=== PATIENT | female | born 1975 | race Two or more races ===

== ENCOUNTER 2017-09-30 14:20 | Emergency (ER) | payer SELFPAY ==
[2017-09-30] MEDS ORDERED: Ondansetron 4 MG Tab.DIS PO ONE (15:28)
--- NOTE | 2017-09-30 15:34 | EDM.PDOC ---
ED HPI GENERAL MEDICAL PROBLEM - General Chief Complaint: Gastrointestinal Problem Stated Complaint: DIARRHEA Time Seen by Provider: 09/30/17 15:29 Source of Information: Reports: Patient History Limitations: Reports: No Limitations - History of Present Illness INITIAL COMMENTS - FREE TEXT/NARRATIVE: pt works at [employer] and was sent home from work last nite because vomiting and diarrhea. She is not feeling well enough to be at work tonight. Onset: Other (last nite. ) Duration: Hour(s):, Other (pt has been holding fluids sown. ) Location: Reports: Abdomen, Other (pt is not hAVING PAIN. ) Associated Symptoms: Reports: Other ( PT HAS HAD DIARRHEA. 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: - Infectious Disease History Infectious Disease History: Reports: Chicken Pox - Past Surgical History Female Surgical History: Reports: Tubal Ligation Social & Family History - Tobacco Use Smoking Status *Q: Current Some Day Smoker Years of Tobacco use: 20 Packs/Tins Daily: 1 Used Tobacco, but Quit: No - Caffeine Use Caffeine Use: Reports: Coffee, Energy Drinks - Recreational Drug Use Recreational Drug Use: No ED ROS GENERAL - Review of Systems Review Of Systems: See Below Constitutional: Reports: Chills HEENT: Reports: No Symptoms Respiratory: Reports: No Symptoms Cardiovascular: Reports: No Symptoms Endocrine: Reports: No Symptoms GI/Abdominal: Reports: Diarrhea, Decreased Appetite, Vomiting : Reports: No Symptoms ED EXAM, GI/ABD - Physical Exam Exam: See Below Text/Narrative:: PT GOT SICK AT WORK . SHE HAD VOMITING AND HAD SIG DIARRHEA. sHE DOES NOT FEEL WELL ENOUGH TO BE AT WORK TONIGHT. Exam Limited By: No Limitations General Appearance: Alert, No Apparent Distress Ears: Normal TMs Nose: Normal Inspection Throat/Mouth: Normal Inspection Head: Atraumatic Neck: Normal Inspection Respiratory/Chest: No Respiratory Distress Cardiovascular: Regular Rate, Rhythm GI/Abdominal Exam: Other (MULTIPLE SCARS ON HER ABDOMAN. sHE HAS NO TENDERNESS. ) (Female) Exam: Deferred Rectal (Female) Exam: Deferred Back Exam: Normal Inspection Extremities: Normal Inspection Course - Vital Signs Last Recorded V/S: Last Vital Signs Temp 36.6 C 09/30/17 15:17 Pulse 91 09/30/17 15:17 Resp 18 09/30/17 15:17 BP 141/84 H 09/30/17 15:17 Pulse Ox 96 09/30/17 15:17 - Orders/Labs/Meds Meds: Medications Discontinued Medications Generic Name Dose Route Start Last Admin Trade Name Nasir PRN Reason Stop Dose Admin Acetaminophen 650 mg 09/30/17 15:57 09/30/17 16:01 Tylenol PO 09/30/17 15:58 650 mg NOW ONE Administration Loperamide HCl 4 mg 09/30/17 15:36 09/30/17 15:56 Imodium PO 09/30/17 15:37 4 mg ONETIME ONE Administration Loperamide HCl Confirm 09/30/17 15:58 Imodium Administered 09/30/17 15:59 Dose 2 mg .ROUTE .STK-MED ONE Ondansetron HCl 4 mg 09/30/17 15:28 09/30/17 15:33 Zofran Odt PO 09/30/17 15:29 4 mg ONETIME ONE Administration - Re-Assessments/Exams Free Text/Narrative Re-Assessment/Exam: 09/30/17 15:35 PT FEELS LIKE SHE HAS BEEN ABLE TO BE HYDRATED WITH THE FLUIDS SHE IS TAKING IN. sHE IS HAVING SIG DIARRHEA 09/30/17 16:04 PT WAS GIVEN SUBLING ZOFORAN AND SHE WAS ABLE TO KEEP FLUIDS DOWN. Departure - Departure Time of Disposition: 16:05 Disposition: Home, Self-Care 01 Condition: Fair Clinical Impression: Flu syndrome - Discharge Information Referrals: PCP,None [Primary Care Provider] - Forms: ED Department Discharge Care Plan Goals: CLEAR LIQUID DIET, ZOFORAN SUBLING Q6H NEEDED FOR NAUSEA AND VOMITING, IMMODIUM 2 TABS AFTER EACH LOOSE STOOL. NO WORK TONIGHT.
[2017-09-30] MEDS ORDERED: Loperamide 2 MG Cap PO ONE (15:36)
[2017-09-30] MEDS ORDERED: Acetaminophen 325 MG Tab PO ONE (15:57)
[2017-09-30] MEDS ORDERED: Loperamide 2 MG Cap ONE (15:58)
== END 2017-09-30 16:23 | disposition home or self-care (01) ==
LOC: JP.ED 14:20
DX: J11.1 Influenza due to unidentified influenza virus with other respiratory manifestations (principal); F17.210 Nicotine dependence, cigarettes, uncomplicated
CPT/HCPCS: 99284; A9270; 99283

== ENCOUNTER 2018-03-22 11:53 | Emergency (ER) | payer SELFPAY ==
[2018-03-22] MEDS ORDERED: Ketorolac 30 MG/ML SDV IM ONE (13:09)
--- NOTE | 2018-03-22 13:12 | EDM.PDOC ---
ED HPI GENERAL MEDICAL PROBLEM - General Chief Complaint: Fever Stated Complaint: SOB/DOES NOT FEEL WELL Time Seen by Provider: 03/22/18 12:51 Source of Information: Reports: Patient, Family, RN Notes Reviewed History Limitations: Reports: Language Barrier - History of Present Illness INITIAL COMMENTS - FREE TEXT/NARRATIVE: 21-year-old female presents to the emergency department day with complaints of shortness of breath and not feeling well, she is a [place] speaking so a language barrier does exist. 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 Female Surgical History: Reports: Tubal Ligation Social & Family History - Tobacco Use Smoking Status *Q: Light Tobacco Smoker Years of Tobacco use: 26 Packs/Tins Daily: 0.5 - Caffeine Use Caffeine Use: Reports: Coffee, Energy Drinks - Recreational Drug Use Recreational Drug Use: No ED ROS GENERAL - Review of Systems Review Of Systems: See Below Constitutional: Denies: Fever, Chills HEENT: Reports: No Symptoms Respiratory: Reports: Shortness of Breath. Denies: Cough, Sputum Cardiovascular: Reports: No Symptoms GI/Abdominal: Reports: No Symptoms : Reports: No Symptoms Musculoskeletal: Reports: No Symptoms Skin: Reports: No Symptoms Neurological: Reports: Headache Psychiatric: Reports: No Symptoms ED EXAM, GENERAL - Physical Exam Exam: See Below Free Text/Narrative:: General: Female, not in any distress, alert HEENT: head is atraumatic normocephalic, eyes pupils equal round reactive to light, sclera clear no conjunctivitis appreciated. Ears tympanic membranes clear and mccurdy landmarks and light reflex are present bilaterally canals are clear. Nose no septal deviation, nares are clear, no blood present. Mouth mucosa is moist and pink no erythema or exudate noted in soft palate, tongue is midline uvula is midline , dentition is intact. Neck: Supple no thyromegaly no tracheal deviation. Nodes: Cervical nodes subclavicular nodes nontender no palpable lymphadenopathy noted. Lungs: clear to auscultation bilaterally with symmetrical respirations, no adventitious noise appreciated. CV: Regular rate and rhythm S1 and S2 appreciated no murmurs rubs or gallops noted. Abdomen: Soft, nontender, no palpable masses or organomegaly appreciated, no distention no guarding bowel sounds are present, multiple abdominal surgical scars. Neuro: Cranial nerves II through XII grossly intact Skin: Warm and dry, intact Extremities: No lower extremity edema appreciated, Course - Vital Signs Text/Narrative:: Nursing staff did find a tick crawling on her while in the emergency department Last Recorded V/S: Last Vital Signs Temp 98.4 F 03/22/18 12:29 Pulse 81 03/22/18 12:29 Resp 16 03/22/18 12:29 BP 143/93 H 03/22/18 12:29 Pulse Ox 96 03/22/18 12:29 - Orders/Labs/Meds Orders: Active Orders 24 hr Category Date Time Status EKG Documentation Completion [RC] ASDIRECTED Care 03/22/18 13:07 Active UA W/MICROSCOPIC [URIN] Urgent Lab 03/22/18 13:25 Ordered EKG 12 Lead [EK] Stat Ther 03/22/18 13:07 Ordered Labs: Laboratory Tests 03/22/18 03/22/18 03/22/18 Range/Units 13:18 13:18 13:18 WBC 10.2 (4.5-11.0) K/uL RBC 4.21 (3.30-5.50) M/uL Hgb 12.0 (12.0-15.0) g/dL Hct 37.4 (36.0-48.0) % MCV 89 (80-98) fL MCH 29 (27-31) pg MCHC 32 (32-36) % Plt Count 189 (150-400) K/uL Neut % (Auto) 63 (36-66) % Lymph % (Auto) 25 (24-44) % [place] % (Auto) 9 H (2-6) % Eos % (Auto) 3 (2-4) % Baso % (Auto) 0 (0-1) % Sodium 139 L (140-148) mmol/L Potassium 4.0 (3.6-5.2) mmol/L Chloride 105 (100-108) mmol/L Carbon Dioxide 27 (21-32) mmol/L Anion Gap 11.0 (5.0-14.0) mmol/L BUN 8 (7-18) mg/dL Creatinine 0.8 (0.6-1.0) mg/dL Est Cr Clr Drug Dosing 75.01 mL/min Estimated GFR (MDRD) > 60 (>60) Glucose 85 (74-106) mg/dL Lactic Acid 1.0 (0.4-2.0) mmol/L Calcium 8.3 L (8.5-10.1) mg/dL Total Bilirubin 0.3 (0.2-1.0) mg/dL AST 21 (15-37) U/L ALT 31 (12-78) U/L Alkaline Phosphatase 63 (46-116) U/L Troponin I < 0.017 (0.000-0.056) ng/mL Total Protein 6.8 (6.4-8.2) g/dL Albumin 2.8 L (3.4-5.0) g/dL Globulin 4.0 H (2.3-3.5) g/dL Albumin/Globulin Ratio 0.7 L (1.2-2.2) Urine Color Urine Appearance Urine pH (4.5-8.0) Ur Specific [place] (1.008-1.030) Urine Protein (NEGATIVE) mg/dL Urine Glucose (UA) (NEGATIVE) mg/dL Urine Ketones (NEGATIVE) mg/dL Urine Occult Blood (NEGATIVE) Urine Nitrite (NEGATIVE) Urine Bilirubin (NEGATIVE) Urine Urobilinogen (NORMAL) mg/dL Ur Leukocyte Esterase (NEGATIVE) Urine RBC (0-5) Urine WBC (0-5) Ur Epithelial Cells Amorphous Sediment Urine Bacteria Urine Mucus 03/22/18 Range/Units 13:25 WBC (4.5-11.0) K/uL RBC (3.30-5.50) M/uL Hgb (12.0-15.0) g/dL Hct (36.0-48.0) % MCV (80-98) fL MCH (27-31) pg MCHC (32-36) % Plt Count (150-400) K/uL Neut % (Auto) (36-66) % Lymph % (Auto) (24-44) % [place] % (Auto) (2-6) % Eos % (Auto) (2-4) % Baso % (Auto) (0-1) % Sodium (140-148) mmol/L Potassium (3.6-5.2) mmol/L Chloride (100-108) mmol/L Carbon Dioxide (21-32) mmol/L Anion Gap (5.0-14.0) mmol/L BUN (7-18) mg/dL Creatinine (0.6-1.0) mg/dL Est Cr Clr Drug Dosing mL/min Estimated GFR (MDRD) (>60) Glucose (74-106) mg/dL Lactic Acid (0.4-2.0) mmol/L Calcium (8.5-10.1) mg/dL Total Bilirubin (0.2-1.0) mg/dL AST (15-37) U/L ALT (12-78) U/L Alkaline Phosphatase (46-116) U/L Troponin I (0.000-0.056) ng/mL Total Protein (6.4-8.2) g/dL Albumin (3.4-5.0) g/dL Globulin (2.3-3.5) g/dL Albumin/Globulin Ratio (1.2-2.2) Urine Color Yellow Urine Appearance Slightly cloudy Urine pH 7.0 (4.5-8.0) Ur Specific [place] 1.015 (1.008-1.030) Urine Protein Negative (NEGATIVE) mg/dL Urine Glucose (UA) Normal (NEGATIVE) mg/dL Urine Ketones Negative (NEGATIVE) mg/dL Urine Occult Blood Large (NEGATIVE) Urine Nitrite Negative (NEGATIVE) Urine Bilirubin Negative (NEGATIVE) Urine Urobilinogen Normal (NORMAL) mg/dL Ur Leukocyte Esterase Moderate (NEGATIVE) Urine RBC 0-5 (0-5) Urine WBC 10-20 H (0-5) Ur Epithelial Cells Few Amorphous Sediment Not seen Urine Bacteria Rare Urine Mucus Not seen Meds: Medications Discontinued Medications Generic Name Dose Route Start Last Admin Trade Name Freq PRN Reason Stop Dose Admin Ketorolac Tromethamine 30 mg 03/22/18 13:09 03/22/18 13:28 Toradol IM 03/22/18 13:10 30 mg ONETIME ONE Administration Departure - Departure Time of Disposition: 14:57 Disposition: Home, Self-Care 01 Condition: Good Clinical Impression: Tick bite Qualifiers: Encounter type: initial encounter Qualified Code(s): W57.XXXA - Bitten or stung by nonvenomous insect and other nonvenomous arthropods, initial encounter - Discharge Information Instructions: Tick Bite Information, Adult, [id number], Tick Bite Information , Adult Referrals: PCP,None [Primary Care Provider] - Forms: ED Department Discharge Additional Instructions: Take full course of antibiotics one tablet 2 times a day for the next 14 days, please follow-up with her primary care provider in the next 3-5 days for reevaluation, call return to the emergency department worsening of symptoms - My Orders Last 24 Hours: My Active Orders 03/22/18 13:07 EKG Documentation Completion [RC] ASDIRECTED EKG 12 Lead [EK] Stat 03/22/18 13:25 UA W/MICROSCOPIC [URIN] Urgent - Assessment/Plan Last 24 Hours: My Active Orders 03/22/18 13:07 EKG Documentation Completion [RC] ASDIRECTED EKG 12 Lead [EK] Stat 03/22/18 13:25 UA W/MICROSCOPIC [URIN] Urgent Plan: Assessment Acuity = acute Site and laterality = body aches, headache, shortness of breath Etiology = suspicious for tickborne illness Manifestations = none Location of injury = Home Lab values = CBC, CMP unremarkable, chest x-ray shows a small right pleural effusion EKG demonstrates a sinus rhythm no ST changes or depression Plan I did discuss options with her as well as review her lab work and chest x-ray results plan is to treat with doxycycline 100 mg by mouth twice a day 14 days follow-up with primary care in the next 3-5 days for reevaluation This note was dictated using [employer] voice recognition software please call with any questions on syntax or grammar.
--- NOTE | 2018-03-22 14:27 | CR ---
CHEST: 2 view CLINICAL HISTORY:SOB COMPARISON:None FINDINGS: Heart size and pulmonary vascularity are normal. There is some blunting of the right costo phrenic angle. No infiltrates are seen. The there is some small nodular focus overlying the heart on the lateral image. This is not definitively seen on the PA view IMPRESSION: Small right pleural effusion Small nodule in the anterior chest on lateral view is indeterminate. If patient has prior studies as would be helpful. If not either short-term follow-up or noncontrast CT chest should be considered
== END 2018-03-22 15:45 | disposition home or self-care (01) ==
LOC: JP.ED 11:53
DX: T14.8XXA Other injury of unspecified body region, initial encounter (principal); R06.02 Shortness of breath; R51 Headache; F17.210 Nicotine dependence, cigarettes, uncomplicated; W57.XXXA Bitten or stung by nonvenomous insect and other nonvenomous arthropods, initial encounter
CPT/HCPCS: 36415; 71046; 71046-26; 80053; 81001; 83605; 84484; 85025; 93005; 96372; 99283; 99284-25; J1885

== ENCOUNTER 2021-07-29 12:09 | Emergency (ER) | payer OTHER ==
[2021-07-29] MEDS ORDERED: Ketorolac 30 MG/ML SDV IM ONE (15:36)
--- NOTE | 2021-07-29 15:42 | EDM.PDOC ---
ED HPI GENERAL MEDICAL PROBLEM - General Chief Complaint: Lower Extremity Injury/Pain Stated Complaint: BACK AND KNEE PAIN Time Seen by Provider: 07/29/21 15:25 Source of Information: Reports: Patient, Family History Limitations: Reports: Language Barrier, Other (limited records) - History of Present Illness INITIAL COMMENTS - FREE TEXT/NARRATIVE: 45 yo female with limited [place] skills presents with apparent acute on chronic R knee and low back pain. Relates an injury that occurred at work last August. Has seen Dr. Carrero for this and is on hydrocodone already. States that she sees an orthopedist in [place] for this problem. Did not have a new injury recently. Did not call Dr. Carrero before coming to the ER today. 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 Female Surgical History: Reports: Tubal Ligation Social & Family History - Caffeine Use Caffeine Use: Reports: Coffee, Energy Drinks Review of Systems - Review of Systems Review Of Systems: See Below Constitutional: Reports: No Symptoms Musculoskeletal: Reports: Back Pain (R low back), Joint Pain (R knee) Skin: Reports: No Symptoms Neurological: Reports: No Symptoms ED EXAM, GENERAL - Physical Exam Exam: See Below Exam Limited By: No Limitations General Appearance: Alert, WD/WN, Mild Distress Eye Exam: Bilateral Eye: Normal Inspection Ears: Normal External Exam, Normal Canal, Hearing Grossly Normal Ear Exam: Bilateral Ear: Auricle Normal, Canal Normal Nose: Normal Inspection, No Blood Throat/Mouth: Normal Lips, Normal Oropharynx, Normal Voice, No Airway Compromise Head: Atraumatic, Normocephalic Neck: Normal Inspection Respiratory/Chest: No Respiratory Distress, Lungs Clear, Normal Breath Sounds, No Accessory Muscle Use Back Exam: Normal Inspection Extremities: Normal Inspection, No Pedal Edema, Other (No effusion, no increased warmth. I barely touch her R knee and she pulls away. Not able to perform a full knee exam. ). No: Increased Warmth, Redness Neurological: Alert, Oriented, CN II-XII Intact, Normal Cognition, No Motor/Sensory Deficits Skin Exam: Warm, Dry, Intact, Normal Color, No Rash Course - Vital Signs Text/Narrative:: Case discussed with Dr. Carrero @ [facility] Last Recorded V/S: Last Vital Signs Temp 36.6 C 07/29/21 15:12 Pulse 76 07/29/21 15:12 Resp 16 07/29/21 15:12 BP 144/88 H 07/29/21 15:12 Pulse Ox 97 07/29/21 15:12 - Orders/Labs/Meds Meds: Medications Discontinued Medications Generic Name Dose Route Start Last Admin Trade Name Freq PRN Reason Stop Dose Admin Ketorolac Tromethamine 30 mg 07/29/21 15:36 Ketorolac 30 Mg/Ml Sdv IM 07/29/21 15:37 ONETIME ONE Departure - Departure Time of Disposition: 15:53 Disposition: Home, Self-Care 01 Condition: Fair Clinical Impression: Chronic knee pain Qualifiers: Laterality: right Qualified Code(s): M25.561 - Pain in right knee; G89.29 - Other chronic pain Chronic low back pain Qualifiers: Back pain laterality: right Sciatica presence: without sciatica Qualified Code(s): M54.50 - Low back pain, unspecified; G89.29 - Other chronic pain - Discharge Information *PRESCRIPTION DRUG MONITORING PROGRAM REVIEWED*: Not Applicable *COPY OF PRESCRIPTION DRUG MONITORING REPORT IN PATIENT LENCHO: Not Applicable Referrals: PCP,None [Primary Care Provider] - Forms: ED Department Discharge Additional Instructions: Continue your current medications. Use your walker to assist with ambulation. See Dr. Carrero to discuss a pain clinic referral. Sepsis Event Note (ED) - Focused Exam Vital Signs: Vital Signs Temp Pulse Resp BP Pulse Ox 07/29/21 15:12 36.6 C 76 16 144/88 H 97
== END 2021-07-29 16:08 | disposition home or self-care (01) ==
LOC: JP.ED 12:09
DX: G89.29 Other chronic pain (principal); M25.561 Pain in right knee; M54.50 Low back pain, unspecified
CPT/HCPCS: 96372; 99283; J1885